=== PATIENT | female | born 1965 | race Caucasian/White ===

== ENCOUNTER 2019-11-10 22:26 | Emergency (ER) | payer OTHER ==
[~2019-11-10] VITALS: Ht 172.7 cm; Wt 113.4 kg
[2019-11-10] MEDS ORDERED: PAXIL 20 MG TAB20 MG PO (22:51)
[2019-11-10] MEDS ORDERED: PROAIR HFA8.5 GM INH (22:51)
[2019-11-10] MEDS ORDERED: XANAX 0.5 MG0.5 M1 PO (22:52)
[2019-11-10] MEDS ORDERED: ROXICODONE5 M2 PO (22:52)
[2019-11-10 23:29] VITALS: BP 135/84
== END 2019-11-10 23:00 | disposition left against medical advice (07) ==
LOC: ER 22:26
DX: L02.02 Furuncle of face (principal); Z53.21 Procedure and treatment not carried out due to patient leaving prior to being seen by health care provider